=== PATIENT | female | born 1985 | race Caucasian/White ===

== ENCOUNTER 2020-09-04 13:14 | Emergency (ER) | payer OTHER ==
[~2020-09-04] VITALS: Ht 172.7 cm; Wt 97.7 kg
--- NOTE | 2020-09-04 14:11 | RAD ---
EXAM: Left foot, 2 views; bilateral knees, 4 views. HISTORY: Pain. COMPARISON: None. FINDINGS: Left foot: 2 views of the left foot are obtained. There is no fracture, dislocation or subluxation. T here is a tiny plantar spur. Bilateral knees: 4 views of both knees are obtained. There is no fracture, dislocation or subluxation . There is no joint effusion. IMPRESSION: No acute osseous finding. Electronically signed by: Galina Aburto MD (09/04/2020 2:08 PM) [id number]
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
[2020-09-04 14:29] VITALS: BP 130/61
== END 2020-09-04 14:58 | disposition home or self-care (01) ==
LOC: ER 13:14
DX: S80.02XA Contusion of left knee, initial encounter (principal); S80.01XA Contusion of right knee, initial encounter; S60.211A Contusion of right wrist, initial encounter; M79.675 Pain in left toe(s); F17.200 Nicotine dependence, unspecified, uncomplicated; Z88.2 Allergy status to sulfonamides; Z88.6 Allergy status to analgesic agent; V43.62XA Car passenger injured in collision with other type car in traffic accident, initial encounter; Y93.89 Activity, other specified; Y92.89 Other specified places as the place of occurrence of the external cause; Y99.8 Other external cause status
CPT/HCPCS: 73630; 81025; 99284; 73564-50